=== PATIENT | male | born 1965 | race Caucasian/White ===

== ENCOUNTER 2018-07-09 21:53 | Emergency (ER) | payer SELFPAY ==
[2018-07-10] MEDS: KETOROLAC 60 MG INJ IM (01:09)
[2018-07-10] MEDS: CEFAZOLIN 1 GM INJ IM (01:09)
== END 2018-07-10 01:48 | disposition home or self-care (01) ==
LOC: FTE 21:53
DX: S61.256A Open bite of right little finger without damage to nail, initial encounter (principal); S61.254A Open bite of right ring finger without damage to nail, initial encounter; W57.XXXA Bitten or stung by nonvenomous insect and other nonvenomous arthropods, initial encounter; Y92.9 Unspecified place or not applicable
CPT/HCPCS: 96372; 99284-25